=== PATIENT | male | born 1995 | race Caucasian/White ===

== ENCOUNTER → 2016-12-12 | Outpatient (REF) | payer MEDICAID ==
[~2016-12-12] MED LIST: CELE20TA PO; TRAZ100T4 PO
== END ==
LOC: M LAB REF 14:12
PROVIDERS: ATTEND Physician Assistant
DX: J02.9 Acute pharyngitis, unspecified (principal)

== ENCOUNTER → 2017-06-01 | Outpatient (CLI) | payer MEDICAID ==
[~2017-06-01] MED LIST changes: +OMEP40CA2 PO; +TRAZ-136 PO; -TRAZ100T4 PO
== END ==
LOC: M OUTALCOH 08:04
PROVIDERS: ATTEND Psychiatry & Neurology Psychiatry
DX: Z13.9 Encounter for screening, unspecified (principal); F12.20 Cannabis dependence, uncomplicated; F10.20 Alcohol dependence, uncomplicated

== ENCOUNTER 2017-07-11 13:36 | Emergency (ER) | payer MEDICAID, OTHER ==
[~2017-07-11] VITALS: Ht 182.9 cm; Wt 69.0 kg
[~2017-07-11 13:36] MED LIST changes: -OMEP40CA2 PO
[2017-07-11 15:49] LABS: BASO % 0.5 % (0.0-1.0); EOS % 0.5 % (0.0-3.0); IMMATURE GRANULOCYTE % 0.2 % (0-0); LYMPH # 1.5 10^3/uL (1.5-6.5); LYMPH % 22.4 % (24.0-44.0); MEAN CORPUSCULAR HEMOGLOBIN 31.4 pg (27.0-33.0); MEAN CORPUSCULAR HGB CONC 34.8 g/dl (32.0-36.5); MEAN CORPUSCULAR VOLUME 90.4 fl (80.0-96.0); MONO # 0.4 10^3/uL (0.0-0.8); MONO % 5.7 % (0.0-5.0); NEUTROPHILS # 4.6 10^3/uL (1.8-7.7); NEUTROPHILS % 70.7 % (36.0-66.0); PLATELET COUNT, AUTOMATED 279 10^3/uL (150-450); RED CELL DISTRIBUTION WIDTH 11.6 % (11.5-14.5); WHITE BLOOD COUNT 6.5 10^3/uL (4.0-10.0)
[2017-07-11 15:50] LABS: ADD MANUAL DIFFER NO; ADD MORPHOLOGY? NO; DIFF SLIDE NUMBER 149
[2017-07-11 16:15] LABS: ALBUMIN 4.7 GM/DL (3.2-5.2); ALBUMIN/GLOBULIN RATIO 1.42 (1.00-1.93); ALKALINE PHOSPHATASE 64 U/L (45-117); ALT/SGPT 16 U/L (12-78); ANION GAP 7 MEQ/L (8-16); AST/SGOT 12 U/L (15-37); BILIRUBIN,TOTAL 0.6 MG/DL (0.2-1.0); BLOOD UREA NITROGEN 7 MG/DL (7-18); CALCIUM LEVEL 9.1 MG/DL (8.5-10.1); CARBON DIOXIDE LEVEL 30 MEQ/L (21-32); CHLORIDE LEVEL 104 MEQ/L (98-107); CREATININE FOR GFR 1.05 MG/DL (0.70-1.30); GLOMERULAR FILTRATION RATE > 60.0 (>60); GLUCOSE, FASTING 77 MG/DL (70-105); SODIUM LEVEL 141 MEQ/L (136-145)
--- NOTE | 2017-07-11 17:40 | REPUSA ---
Clinical history: Right upper quadrant pain. Findings: The pancreas is limited in visualization secondary to overlying bowel gas, but appears celestina sly unremarkable. The liver demonstrates uniform echotexture and echogenicity, with no mass lesions. The gallbladder contains a small amount of echogenic, non-shadowing debris. There is no gallbladder w all thickening. The common bile duct measures 3 mm and is within normal limits. There is no ascites. The right kidney measures 11.4 cm in length and is unremarkable. Impression: Small amount of gallbladder sludge. Otherwise unremarkable ultrasound examination of the right upper quadrant.
[2017-07-11] MEDS ORDERED: OMEP40CA2 PO (17:52)
[2017-07-11 18:05] VITALS: BP 120/70
== END 2017-07-11 18:06 | disposition home or self-care (01) ==
LOC: M ED 13:36
DX: R10.11 Right upper quadrant pain (principal); F41.9 Anxiety disorder, unspecified; F33.9 Major depressive disorder, recurrent, unspecified; Z87.891 Personal history of nicotine dependence

== ENCOUNTER → 2017-12-14 | Outpatient (REF) | payer OTHER ==
[2017-12-14 14:11] LABS: VALPROIC ACID (DEPAKOTE) 57.5 UG/ML (50.0-100.0)
== END ==
LOC: M LAB REF 13:32
DX: Z51.81 Encounter for therapeutic drug level monitoring (principal)

== ENCOUNTER 2021-04-30 12:18 | Inpatient (IN) | payer MEDICAID, OTHER, SELFPAY ==
[~2021-04-30] VITALS: Ht 185.4 cm; Wt 68.0 kg
[~2021-04-30 12:18] MED LIST changes: +OMEP40CA4 PO; -TRAZ-136 PO; +TRAZ-257 PO
[2021-04-30 12:47] LABS: HEMATOCRIT 46.5 % (42.0-52.0); HEMOGLOBIN 15.8 g/dl (13.5-17.5); MEAN CORPUSCULAR HEMOGLOBIN 31.9 pg (27.0-33.0); MEAN CORPUSCULAR VOLUME 93.9 fl (80.0-96.0); PLATELET COUNT, AUTOMATED 257 10^3/uL (150-450); RED BLOOD COUNT 4.95 10^6/uL (4.30-6.10); WHITE BLOOD COUNT 7.3 10^3/uL (4.0-10.0)
[2021-04-30 13:10] LABS: AMPHETAMINES LEVEL URINE NEGATIVE (NEGATIVE); BARBITURATES URINE NEGATIVE (NEGATIVE); BENZODIAZEPINES URINE NEGATIVE (NEGATIVE); CANNABINOIDS URINE POSITIVE (NEGATIVE); COCAINE METABOLITE URINE NEGATIVE (NEGATIVE); METHADONE URINE NEGATIVE (NEGATIVE); OPIATES URINE NEGATIVE (NEGATIVE); PHENCYCLIDINE URINE NEGATIVE (NEGATIVE)
[2021-04-30 14:13] LABS: ACETAMINOPHEN LEVEL < 2.0 UG/ML (10.0-30.0); ALBUMIN 4.7 GM/DL (3.2-5.2); ALT/SGPT 26 U/L (12-78); BILIRUBIN,DIRECT 0.1 MG/DL (0.0-0.2); BILIRUBIN,TOTAL 0.6 MG/DL (0.2-1.0); BLOOD UREA NITROGEN 11 MG/DL (7-18); CALCIUM LEVEL 9.4 MG/DL (8.5-10.1); CARBON DIOXIDE LEVEL 24 MEQ/L (21-32); CHLORIDE LEVEL 108 MEQ/L (98-107); CREATININE FOR GFR 0.91 MG/DL (0.70-1.30); ETHYL ALCOHOL (ETHANOL) < 0.003 % (0.000-0.010); GLOMERULAR FILTRATION RATE > 60.0 (>60); GLUCOSE, FASTING 87 MG/DL (70-100); POTASSIUM SERUM 4.2 MEQ/L (3.5-5.1); SALICYLATE LEVEL 3.4 MG/DL (5.0-30.0); SODIUM LEVEL 140 MEQ/L (136-145); TOTAL PROTEIN 7.8 GM/DL (6.4-8.2)
[2021-04-30] MEDS ORDERED: HOME MED LIST COMPLETE! XX SCH (15:45)
[2021-04-30] MEDS ORDERED: MOM 30ML SUSPENSION UDC PO PRN (16:25)
[2021-04-30] MEDS ORDERED: MAALOX 30 ML SUSP *UDC PO PRN (16:25)
[2021-04-30] MEDS ORDERED: traZODone 50 MG TAB PO PRN (16:25)
[2021-04-30] MEDS ORDERED: ACETAMINOPHEN TAB 650MG DOSE (2X325MG) PO PRN (16:25)
[2021-04-30 17:12] LABS: RSV AMPLIFICATION NEGATIVE (NEGATIVE)
[2021-04-30 18:21] VITALS: BP 119/64
[2021-05-01 06:24] VITALS: BP 118/70
--- NOTE | 2021-05-01 14:32 | HPEPDOC ---
General Date of Admission Apr 30, 2021 at 16:24 Date of Service: May 01, 2021 Chief Complaint The patient is a 25-year-old male admitted with a reason for visit of Depressive Do Nos. Source: Patient Exam Limitations: No limitations History of Present Illness Patient is 25 years old male who identifies himself as a female presented to hospital with suicidal ideation. Pt reports in the process of transitioning from a male to a female. States she has a long hx of suicide attempts in the past, but refuses to explain in detail and notes never informing anyone. Patient denies fever, chills, nausea, diarrhea or dysuria Home Medications No Active Prescriptions or Reported Meds Allergies Coded Allergies: No Known Allergies (Unverified , 11/05/15) Past Medical History Medical History Anxiety/depression Family History Mother has anxiety and depression Social History * Smoker: current smoker Alcohol: occationally Drugs: marijuana A-FIB/CHADSVASC A-FIB History Current/History of A-Fib/PAF?: No Current PO Anticoag Therapy: No Review of Systems Constitutional: Denies: Chills Eyes: Denies: Pain ENT: Denies: Head Aches Skin: Denies: Rash Pulmonary: Denies: Dyspnea, Cough Cardiovascular: Denies: Chest Pain Gastrointestinal: Denies: Nausea Genitourinary: Denies: Dysuria Hematologic: Denies: Bruising Endocrine: Denies: Polydipsia Musculoskeletal: Denies: Neck Pain Neurological: Denies: Weakness Psych: Reports: Depression; Denies: Mood Normal Physical Examination General Exam: Positive: Alert Eye Exam: Positive: PERRLA ENT Exam: Positive: Atraumatic Neck Exam: Positive: Supple; Negative: JVD Chest Exam: Positive: Clear to auscultation Heart Exam: Positive: Rate Normal Telemetry: Positive: No significant arrhythmia Abdomen Exam: Positive: Normal bowel sounds Extremity Exam: Negative: Clubbing Skin Exam: Positive: Nl turgor and temperature Neuro Exam: Positive: Normal Gait Psych Exam: Positive: Oriented x 3 Vital Signs Vital Signs Date Time Temp Pulse Resp B/P (MAP) Pulse Ox O2 Delivery O2 Flow Rate FiO2 05/01/21 09:02 Room Air 05/01/21 06:24 97.5 75 18 118/70 (86) 98 Laboratory Data Labs 24H Laboratory Tests 2 04/30/21 15:51: Coronavirus (COVID-19)(PCR) NEGATIVE, Influenza Type A (RT-PCR) NEGATIVE, Influenza Type B (RT-PCR) NEGATIVE, Respiratory Syncytial Virus (PCR) NEGATIVE Assessment/Plan Patient is 25 years old male who identifies himself as a female presented to hospital with suicidal ideation. Pt reports in the process of transitioning from a male to a female. States she has a long hx of suicide attempts in the past, but refuses to explain in detail and notes never informing anyone. Patient denies fever, chills, nausea, diarrhea or dysuria Problems (1) Depression with suicidal ideation Status: Acute Problem Text: Defer treatment to psych team Plan / VTE VTE Prophylaxis Ordered?: No VTE Exclusion Mechanical Proph: Low Risk for VTE ANGELA ZHANG DO May 01, 2021 14:31
[2021-05-01] MEDS ORDERED: traZODone 100 MG TAB PO PRN (15:50)
[2021-05-01] MEDS ORDERED: SERTRALINE HCL 25 MG TABLET PO ONE (15:50)
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
[2021-05-01] MEDS: NICOTINE 14 MG/24 HR TRANSDERMAL TD PRN (17:59)
[2021-05-01 18:03] VITALS: BP 140/67
[2021-05-02 06:08] VITALS: BP 119/70
[2021-05-02] MEDS: NICOTINE 14 MG/24 HR TRANSDERMAL TD PRN (08:30)
[2021-05-02] MEDS: hydrOXYzine 50 MG TAB PO PRN ×2 (08:30→20:47)
[2021-05-02] MEDS: SERTRALINE HCL 50 MG TAB PO SCH (08:30)
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
[2021-05-02 18:00] VITALS: BP 132/76
[2021-05-02] MEDS ORDERED: MIRTAZAPINE 7.5MG PER 1/2 TABLET PO SCH (21:00)
[2021-05-03 07:04] VITALS: BP 113/58
[2021-05-03] MEDS: SERTRALINE HCL 50 MG TAB PO SCH (08:16)
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
[2021-05-03] MEDS: diphenhydrAMINE 25MG CAP PO SCH (22:10)
[2021-05-04] MEDS: SERTRALINE HCL 50 MG TAB PO SCH (08:25)
[2021-05-04] MEDS: NICOTINE 14 MG/24 HR TRANSDERMAL TD PRN (08:27)
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
[2021-05-04] MEDS: MULTIVITAMINS/MINERALS THERAP 1 TAB PO SCH (16:52)
[2021-05-04 17:03] VITALS: BP 135/75
[2021-05-04] MEDS: hydrOXYzine 50 MG TAB PO PRN (18:54)
[2021-05-04] MEDS: diphenhydrAMINE 25MG CAP PO SCH (21:45)
[2021-05-05 06:00] VITALS: BP 97/54
[2021-05-05] MEDS: SERTRALINE HCL 50 MG TAB PO SCH (09:03)
[2021-05-05] MEDS: MULTIVITAMINS/MINERALS THERAP 1 TAB PO SCH (09:03)
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
[2021-05-05 17:46] VITALS: BP 129/76
[2021-05-05] MEDS: diphenhydrAMINE 25MG CAP PO SCH (21:33)
[2021-05-06 07:24] VITALS: BP 115/78
[2021-05-06] MEDS: MULTIVITAMINS/MINERALS THERAP 1 TAB PO SCH (09:21)
[2021-05-06] MEDS: SERTRALINE HCL 50 MG TAB PO SCH (09:22)
[2021-05-06] MEDS ORDERED: SERT50TA29 PO (09:24)
[2021-05-06] MEDS ORDERED: NICO14PA TD (09:24)
[2021-05-06] MEDS ORDERED: DIPH25CA32 PO (09:24)
[2021-05-06] MEDS ORDERED: VITMTA PO (09:24)
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
== END 2021-05-06 11:40 | disposition home or self-care (01) | DRG 751 ==
LOC: M ED 12:18 → M ED INP 16:24 → M PSY 19:00
PROVIDERS: ADMIT Psychiatry & Neurology Psychiatry; ATTEND Psychiatry & Neurology Psychiatry
DX: F33.1 Major depressive disorder, recurrent, moderate (principal); F34.9 Persistent mood [affective] disorder, unspecified; R45.851 Suicidal ideations; F90.9 Attention-deficit hyperactivity disorder, unspecified type; F41.9 Anxiety disorder, unspecified; F17.200 Nicotine dependence, unspecified, uncomplicated; F64.9 Gender identity disorder, unspecified; Z63.8 Other specified problems related to primary support group; Z20.822 Contact with and (suspected) exposure to COVID-19; Z91.5 Personal history of self-harm; Z62.810 Personal history of physical and sexual abuse in childhood

== ENCOUNTER 2021-09-30 15:59 | Inpatient (IN) | payer MEDICAID, OTHER ==
[~2021-09-30] VITALS: Ht 180.3 cm; Wt 56.8 kg
[~2021-09-30 15:59] MED LIST changes: +DIPH25CA32 PO; +NICO14PA TD; +SERT50TA29 PO; +VITMTA PO
[2021-09-30] MEDS ORDERED: PROG1CAP8 PO ×2 (16:35→17:25)
[2021-09-30] MEDS ORDERED: ESTR25VL IM ×2 (16:35→17:25)
[2021-09-30] MEDS ORDERED: SPIR50TA4 PO ×2 (16:35→17:25)
[2021-09-30 17:06] LABS: HEMATOCRIT 42.9 % (42.0-52.0); HEMOGLOBIN 14.7 g/dl (13.5-17.5); MEAN CORPUSCULAR HEMOGLOBIN 31.9 pg (27.0-33.0); MEAN CORPUSCULAR HGB CONC 34.3 g/dl (32.0-36.5); MEAN CORPUSCULAR VOLUME 93.1 fl (80.0-96.0); PLATELET COUNT, AUTOMATED 224 10^3/uL (150-450); RED BLOOD COUNT 4.61 10^6/uL (4.30-6.10); WHITE BLOOD COUNT 8.4 10^3/uL (4.0-10.0)
[2021-09-30 17:13] LABS: AMPHETAMINES LEVEL URINE NEGATIVE (NEGATIVE); BARBITURATES URINE NEGATIVE (NEGATIVE); BENZODIAZEPINES URINE NEGATIVE (NEGATIVE); CANNABINOIDS URINE POSITIVE (NEGATIVE); COCAINE METABOLITE URINE NEGATIVE (NEGATIVE); METHADONE URINE NEGATIVE (NEGATIVE); OPIATES URINE NEGATIVE (NEGATIVE); PHENCYCLIDINE URINE NEGATIVE (NEGATIVE)
[2021-09-30] MEDS ORDERED: HOME MED LIST COMPLETE! XX SCH (17:25)
[2021-09-30 17:52] LABS: ACETAMINOPHEN LEVEL < 2.0 UG/ML (10.0-30.0); ALBUMIN 4.3 GM/DL (3.2-5.2); ALT/SGPT 17 U/L (12-78); BILIRUBIN,DIRECT 0.2 MG/DL (0.0-0.2); BILIRUBIN,TOTAL 0.6 MG/DL (0.2-1.0); BLOOD UREA NITROGEN 10 MG/DL (7-18); CARBON DIOXIDE LEVEL 22 MEQ/L (21-32); CHLORIDE LEVEL 109 MEQ/L (98-107); CREATININE FOR GFR 0.84 MG/DL (0.70-1.30); ETHYL ALCOHOL (ETHANOL) < 0.003 % (0.000-0.010); GLOMERULAR FILTRATION RATE > 60.0 (>60); GLUCOSE, FASTING 86 MG/DL (70-100); POTASSIUM SERUM 4.5 MEQ/L (3.5-5.1); SALICYLATE LEVEL 4.1 MG/DL (5.0-30.0); SODIUM LEVEL 139 MEQ/L (136-145); THYROID STIMULATING HORMONE 0.647 uIU/ML (0.358-3.740); TOTAL PROTEIN 7.3 GM/DL (6.4-8.2)
[2021-09-30 18:07] LABS: RSV AMPLIFICATION NEGATIVE (NEGATIVE)
[2021-09-30] MEDS ORDERED: SPIRONOLACTONE 50 MG TAB PO ONE (20:40)
[2021-09-30] MEDS ORDERED: diphenhydrAMINE 25MG CAP PO ONE (21:30)
[2021-10-01] MEDS ORDERED: ACETAMINOPHEN TAB 650MG DOSE (2X325MG) PO PRN (14:20)
[2021-10-01] MEDS ORDERED: LORazepam 1 MG TAB PO PRN (14:20)
[2021-10-01] MEDS ORDERED: MOM 30ML SUSPENSION UDC PO PRN (14:20)
[2021-10-01] MEDS ORDERED: MAALOX 30 ML SUSP *UDC PO PRN (14:20)
[2021-10-01 16:18] VITALS: BP 108/56
[2021-10-01] MEDS: SPIRONOLACTONE 50 MG TAB PO SCH (22:17)
[2021-10-01] MEDS: traZODone 50 MG TAB PO PRN (22:30)
[2021-10-02 06:27] VITALS: BP 133/77
[2021-10-02] MEDS: SPIRONOLACTONE 50 MG TAB PO SCH ×2 (08:27→20:39)
[2021-10-02] MEDS ORDERED: PROGESTERONE 100MG CAPSULE (PATIENT'S OWN MED) PO SCH (09:00)
[2021-10-02] MEDS ORDERED: INFLUENZA QUADRIVALENT PF VACCINE 0.5ML SYRINGE IM ONE (09:00)
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
--- NOTE | 2021-10-02 13:33 | HPEPDOC ---
General Date of Admission Oct 01, 2021 at 14:18 Date of Service: Oct 02, 2021 Chief Complaint The patient is a 25-year-old male admitted with a reason for visit of Depressive Disorder Nos. History of Present Illness This is a 25 -year-old Single, , male to female transgender (in the process of undergoing the transition), goes by the name of Hope has been admitted to inpatient mental health unit for suicidal attempt by cutting her wrists with scissors after an argument with her mother. Denies any complaints this morning. Home Medications Scheduled Estradiol Cypionate (Depo-Estradiol) 5 Mg/1 Ml Vial, 0.3 MG IM Q2WK, (Reported) Progesterone, Micronized (Progesterone) 100 Mg Capsule, 100 MG PO DAILY, (Reported) Spironolactone (Spironolactone) 50 Mg Tablet, 50 MG PO BID, (Reported) Allergies Coded Allergies: No Known Allergies (Unverified , 11/05/15) Past Medical History Medical History Major Depressive Disorder ADHD Unspecified Anxiety Disorder Nicotine Use Disorder History of Cannabis Use Disorder Gender Dysphoria Distress Surgical History None Family History Significant Family History: Other (Mother has anxiety and depression.) Social History * Smoker: former Smoker Alcohol: occationally Drugs: marijuana A-FIB/CHADSVASC A-FIB History Current/History of A-Fib/PAF?: No Age/Risk Factor Scoring CHADSVASC: CHADSVASC Response (Comments) Value Age Risk Factor Age < 65 years old 0 Gender Risk Factor Male 0 Hx of CHF No 0 Hx of HTN No 0 Hx of Stroke/TIA/or VTE No 0 Hx of Diabetes No 0 Hx of Vascular Disease No 0 Total 0 Review of Systems Constitutional: Denies: Chills, Fever, Night Sweats Eyes: Denies: Pain, Vision change Skin: Denies: Rash, Lesions, Breakdown Pulmonary: Denies: Dyspnea, Cough Cardiovascular: Denies: Chest Pain, Palpitations, Orthopnea, Paroxysmal Noc. Dyspnea, Lt Headedness Gastrointestinal: Denies: Nausea, Vomiting, Abdominal Pain, Diarrhea Genitourinary: Denies: Dysuria, Frequency, Incontinence, Retention Hematologic: Denies: Bruising, Bleeding Excessively Physical Examination General Exam: Positive: Alert, Cooperative, No Acute Distress Eye Exam: Positive: PERRLA, Conjunctiva & lids normal, EOMI; Negative: Sclera icteric ENT Exam: Positive: Atraumatic, Mucous membr. moist/pink, Pharynx Normal, Other ENT (Bitemporal wasting) Neck Exam: Positive: Supple; Negative: JVD, thyromegaly Chest Exam: Positive: Clear to auscultation, Normal air movement Heart Exam: Positive: Rate Normal, Regular Rhythm, Normal S1, Normal S2; Negative: Murmurs, Rubs Abdomen Exam: Positive: Normal bowel sounds, Soft; Negative: Tenderness, Hepatospenomegaly Extremity Exam: Negative: Clubbing, Cyanosis, Edema Skin Exam: Positive: Nl turgor and temperature; Negative: Breakdown, Lesion Psych Exam: Positive: Memory Intact, Oriented x 3 Vital Signs Vital Signs Date Time Temp Pulse Resp B/P (MAP) Pulse Ox O2 Delivery O2 Flow Rate FiO2 10/02/21 06:27 97.6 92 16 133/77 (95) 97 Room Air Assessment/Plan This is a 25 -year-old Single, , male to female transgender (in the process of undergoing the transition), goes by the name of Hope has been admitted to inpatient mental health unit for suicidal attempt by cutting her wrists with scissors after an argument with her mother. No medical complaints at this time. On questioning patient reports that he lost 30 pounds in the past 3 months. She reports that after starting hormone therapy she has been over conscious about her weight and whenever feel she feels like she is gaining weight she stops eating. Depression As per psychiatry Protein calorie malnutrition BMI of 17.5 Loss of 30 pounds in 3-months Has bitemporal wasting. Sruthi Catherine MD Oct 02, 2021 11:26
[2021-10-02 17:51] VITALS: BP 122/78
[2021-10-02] MEDS: traZODone 50 MG TAB PO PRN (22:26)
[2021-10-03 06:19] VITALS: BP 108/66
[2021-10-03] MEDS ORDERED: TRAZ-257 PO (07:40)
[2021-10-03] MEDS: SPIRONOLACTONE 50 MG TAB PO SCH (08:43)
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
== END 2021-10-03 09:30 | disposition home or self-care (01) | DRG 755 ==
LOC: M ED 15:59 → M ED INP 10-01 14:18 → M PSY 10-01 16:11
PROVIDERS: ADMIT Psychiatry & Neurology Psychiatry; ATTEND Psychiatry & Neurology Psychiatry
DX: F43.25 Adjustment disorder with mixed disturbance of emotions and conduct (principal); E46 Unspecified protein-calorie malnutrition; F64.0 Transsexualism; Z87.891 Personal history of nicotine dependence; Z79.899 Other long term (current) drug therapy; Z62.810 Personal history of physical and sexual abuse in childhood; Z91.51 Personal history of suicidal behavior; Z68.1 Body mass index [BMI] 19.9 or less, adult; F34.81 Disruptive mood dysregulation disorder

== ENCOUNTER 2021-11-27 03:27 | Emergency (ER) | payer MEDICAID, OTHER ==
[~2021-11-27] VITALS: Ht 180.3 cm; Wt 61.4 kg
[~2021-11-27 03:27] MED LIST changes: +ESTR25VL IM; +PROG1CAP8 PO; +SPIR50TA4 PO
[2021-11-27] MEDS ORDERED: ACETAMINOPHEN 325 MG TAB PO ONE (07:10)
[2021-11-27 08:29] LABS: BASO # 0.1 10^3/uL (0.0-0.2); BASO % 0.5 % (0.0-1.0); EOS # 0.1 10^3/uL (0.0-0.5); EOS % 0.5 % (0.0-3.0); HEMATOCRIT 41.9 % (42.0-52.0); HEMOGLOBIN 14.4 g/dl (13.5-17.5); LYMPH # 1.3 10^3/uL (1.5-5.0); LYMPH % 8.6 % (24.0-44.0); MEAN CORPUSCULAR HEMOGLOBIN 31.9 pg (27.0-33.0); MEAN CORPUSCULAR HGB CONC 34.4 g/dl (32.0-36.5); MEAN CORPUSCULAR VOLUME 92.7 fl (80.0-96.0); MONO # 0.8 10^3/uL (0.0-0.8); MONO % 5.2 % (2.0-8.0); NEUTROPHILS # 13.2 10^3/uL (1.5-8.5); NEUTROPHILS % 84.7 % (36.0-66.0); PLATELET COUNT, AUTOMATED 295 10^3/uL (150-450); RED BLOOD COUNT 4.52 10^6/uL (4.30-6.10); WHITE BLOOD COUNT 15.6 10^3/uL (4.0-10.0)
[2021-11-27] MEDS ORDERED: ISOVUE-370 76% 100ML VIAL As Ordered ONE (08:43)
[2021-11-27 08:56] LABS: ALBUMIN 4.2 GM/DL (3.2-5.2); ALT/SGPT 24 U/L (12-78); BILIRUBIN,DIRECT 0.2 MG/DL (0.0-0.2); BILIRUBIN,TOTAL 0.7 MG/DL (0.2-1.0); BLOOD UREA NITROGEN 13 MG/DL (7-18); CALCIUM LEVEL 9.3 MG/DL (8.5-10.1); CARBON DIOXIDE LEVEL 28 MEQ/L (21-32); CHLORIDE LEVEL 105 MEQ/L (98-107); CREATININE FOR GFR 0.94 MG/DL (0.70-1.30); GLOMERULAR FILTRATION RATE > 60.0 (>60); GLUCOSE, FASTING 95 MG/DL (70-100); LIPASE 92 U/L (73-393); POTASSIUM SERUM 4.7 MEQ/L (3.5-5.1); SODIUM LEVEL 138 MEQ/L (136-145); TOTAL PROTEIN 7.5 GM/DL (6.4-8.2)
[2021-11-27] MEDS ORDERED: PIPERACILLIN/TAZOBACTAM SOD 3.375 GM in D5W MINI-BAG PLUS 50 ML IV ONE (10:15)
[2021-11-27] MEDS ORDERED: KETOROLAC 30 MG/ML 1ML VIAL IV ONE (10:25)
[2021-11-27 12:13] LABS: RSV AMPLIFICATION NEGATIVE (NEGATIVE)
[2021-11-27 12:29] VITALS: BP 115/60
== END 2021-11-27 13:01 | disposition home or self-care (01) ==
LOC: M ED 03:27
DX: R10.31 Right lower quadrant pain (principal); R10.32 Left lower quadrant pain; D72.829 Elevated white blood cell count, unspecified; Z87.891 Personal history of nicotine dependence; Z79.890 Hormone replacement therapy; Z79.899 Other long term (current) drug therapy
CPT/HCPCS: 74177; 80048; 80076; 83690; 85025; 87631; 96374; 96375; 99284; J1885; J2543; Q9967

== ENCOUNTER 2022-01-22 15:11 | Inpatient (IN) | payer MEDICAID, OTHER ==
[~2022-01-22] VITALS: Ht 177.8 cm; Wt 57.5 kg
[2022-01-22] MEDS ORDERED: SPIR100T3 (15:23)
[2022-01-22 18:32] LABS: BASO # 0.1 10^3/uL (0.0-0.2); BASO % 0.3 % (0.0-1.0); EOS % 0.2 % (0.0-3.0); HEMATOCRIT 38.9 % (42.0-52.0); HEMOGLOBIN 13.6 g/dl (13.5-17.5); LYMPH # 1.6 10^3/uL (1.5-5.0); LYMPH % 10.8 % (24.0-44.0); MEAN CORPUSCULAR HEMOGLOBIN 32.5 pg (27.0-33.0); MEAN CORPUSCULAR VOLUME 93.1 fl (80.0-96.0); MONO # 1.2 10^3/uL (0.0-0.8); MONO % 7.7 % (2.0-8.0); NEUTROPHILS # 12.1 10^3/uL (1.5-8.5); NEUTROPHILS % 80.5 % (36.0-66.0); PLATELET COUNT, AUTOMATED 292 10^3/uL (150-450); RED BLOOD COUNT 4.18 10^6/uL (4.30-6.10)
[2022-01-22 18:43] LABS: INR 1.14
[2022-01-22 18:44] LABS: PARTIAL THROMBOPLASTIN TIME 37.7 SECONDS (25.9-37.0)
[2022-01-22] MEDS ORDERED: NS 1,000 ML IV ONE (18:45)
[2022-01-22] MEDS ORDERED: KETOROLAC 30 MG/ML 1ML VIAL IV ONE (18:45)
[2022-01-22 18:55] LABS: CK-MB VALUE MASS < 1.0 NG/ML (<3.6); CPK CREATINE PHOSPHOKINASE 120 U/L (39-308); MB/CK RELATIVE INDEX 0.83 (< OR =4)
[2022-01-22 18:59] LABS: ALBUMIN 3.8 GM/DL (3.2-5.2); ALT/SGPT 29 U/L (12-78); AMYLASE 34 U/L (25-115); BILIRUBIN,DIRECT 0.2 MG/DL (0.0-0.2); BILIRUBIN,TOTAL 0.7 MG/DL (0.2-1.0); ETHYL ALCOHOL (ETHANOL) < 0.003 % (0.000-0.010); LIPASE 70 U/L (73-393)
[2022-01-22] MEDS ORDERED: ISOVUE-370 76% 100ML VIAL As Ordered ONE (19:01)
[2022-01-22 19:10] LABS: AMPHETAMINES LEVEL URINE NEGATIVE (NEGATIVE); BARBITURATES URINE NEGATIVE (NEGATIVE); BENZODIAZEPINES URINE NEGATIVE (NEGATIVE); CANNABINOIDS URINE POSITIVE (NEGATIVE); COCAINE METABOLITE URINE NEGATIVE (NEGATIVE); METHADONE URINE NEGATIVE (NEGATIVE); OPIATES URINE NEGATIVE (NEGATIVE); PHENCYCLIDINE URINE NEGATIVE (NEGATIVE)
[2022-01-22 19:14] LABS: BLOOD UREA NITROGEN 9 MG/DL (7-18); CALCIUM LEVEL 8.6 MG/DL (8.5-10.1); CARBON DIOXIDE LEVEL 25 MEQ/L (21-32); CHLORIDE LEVEL 104 MEQ/L (98-107); CREATININE FOR GFR 0.81 MG/DL (0.70-1.30); GLOMERULAR FILTRATION RATE > 60.0 (>60); GLUCOSE, FASTING 84 MG/DL (70-100); POTASSIUM SERUM 3.6 MEQ/L (3.5-5.1); SODIUM LEVEL 136 MEQ/L (136-145)
[2022-01-22] MEDS ORDERED: SPIR100T3 PO (22:26)
[2022-01-22] MEDS ORDERED: HOME MED LIST COMPLETE! XX SCH (22:30)
[2022-01-22 22:45] LABS: ACETAMINOPHEN LEVEL < 2.0 UG/ML (10.0-30.0); SALICYLATE LEVEL 2.6 MG/DL (5.0-30.0); THYROID STIMULATING HORMONE 0.717 uIU/ML (0.358-3.740)
[2022-01-22 23:40] LABS: RSV AMPLIFICATION NEGATIVE (NEGATIVE)
[2022-01-23 08:14] LABS: HEMATOCRIT 38.3 % (42.0-52.0); HEMOGLOBIN 13.2 g/dl (13.5-17.5); MEAN CORPUSCULAR HEMOGLOBIN 32.4 pg (27.0-33.0); MEAN CORPUSCULAR HGB CONC 34.5 g/dl (32.0-36.5); MEAN CORPUSCULAR VOLUME 93.9 fl (80.0-96.0); PLATELET COUNT, AUTOMATED 278 10^3/uL (150-450); RED BLOOD COUNT 4.08 10^6/uL (4.30-6.10); WHITE BLOOD COUNT 8.6 10^3/uL (4.0-10.0)
[2022-01-23 08:31] LABS: BLOOD UREA NITROGEN 8 MG/DL (7-18); CALCIUM LEVEL 8.4 MG/DL (8.5-10.1); CARBON DIOXIDE LEVEL 25 MEQ/L (21-32); CHLORIDE LEVEL 108 MEQ/L (98-107); CREATININE FOR GFR 0.63 MG/DL (0.70-1.30); GLOMERULAR FILTRATION RATE > 60.0 (>60); GLUCOSE, FASTING 89 MG/DL (70-100); POTASSIUM SERUM 4.1 MEQ/L (3.5-5.1); SODIUM LEVEL 140 MEQ/L (136-145)
[2022-01-23] MEDS: SPIRONOLACTONE 50 MG TAB PO SCH ×2 (09:45→22:58)
[2022-01-23] MEDS: PROGESTERONE 100MG CAPSULE (PATIENT'S OWN MED) PO SCH (14:20)
[2022-01-24] MEDS: SPIRONOLACTONE 50 MG TAB PO SCH ×2 (09:51→22:55)
[2022-01-24] MEDS: PROGESTERONE 100MG CAPSULE (PATIENT'S OWN MED) PO SCH (10:35)
[2022-01-24] MEDS ORDERED: LORazepam 1 MG TAB PO ONE (11:30)
[2022-01-24] MEDS ORDERED: BENZONATATE 100MG CAPSULE PO ONE (21:20)
[2022-01-25] MEDS: SPIRONOLACTONE 50 MG TAB PO SCH ×2 (10:16→21:33)
[2022-01-25] MEDS: PROGESTERONE 100MG CAPSULE (PATIENT'S OWN MED) PO SCH (10:16)
[2022-01-25] MEDS ORDERED: LORazepam 1 MG TAB PO ONE ×2 (11:30→18:05)
[2022-01-26] MEDS ORDERED: ESTRADIOL CYPIONATE 5 MG/ML IM SCH (09:00)
[2022-01-26] MEDS: PROGESTERONE 100MG CAPSULE (PATIENT'S OWN MED) PO SCH (09:03)
[2022-01-26] MEDS: SPIRONOLACTONE 50 MG TAB PO SCH ×2 (09:29→21:52)
[2022-01-26] MEDS ORDERED: LORazepam 1 MG TAB PO STA (11:40)
[2022-01-26] MEDS ORDERED: MAALOX 30 ML SUSP *UDC PO PRN (14:00)
[2022-01-26] MEDS ORDERED: MOM 30ML SUSPENSION UDC PO PRN (14:00)
[2022-01-26] MEDS ORDERED: ACETAMINOPHEN TAB 650MG DOSE (2X325MG) PO PRN (14:00)
[2022-01-26] MEDS: NICOTINE 21MG/24HR 1 EA TRANSDERMAL TD SCH (14:38)
[2022-01-26 18:53] VITALS: BP 130/71
[2022-01-26] MEDS: diphenhydrAMINE 25MG CAP PO PRN (20:38)
[2022-01-26] MEDS ORDERED: ENTER DRUG NAME HERE (PATIENT'S OWN MED) PO ONE (21:10)
[2022-01-26] MEDS ORDERED: PROGESTERONE 100 MG PO ONE (21:30)
[2022-01-27] MEDS: NICOTINE 21MG/24HR 1 EA TRANSDERMAL TD SCH (09:00)
[2022-01-27] MEDS ORDERED: LORazepam 1 MG TAB PO ONE (09:45)
[2022-01-27] MEDS: PROGESTERONE 100 MG PO SCH (10:03)
[2022-01-27] MEDS: SPIRONOLACTONE 50 MG TAB PO SCH ×2 (11:43→17:00)
[2022-01-27 18:00] VITALS: BP 112/60
[2022-01-28] MEDS: NICOTINE 21MG/24HR 1 EA TRANSDERMAL TD SCH (09:00)
[2022-01-28] MEDS: PROGESTERONE 100 MG PO SCH (09:10)
[2022-01-28] MEDS: diphenhydrAMINE 25MG CAP PO PRN (09:10)
[2022-01-28] MEDS: SPIRONOLACTONE 50 MG TAB PO SCH ×2 (09:10→16:53)
[2022-01-28 16:17] VITALS: BP 133/70
[2022-01-28] MEDS: lamoTRIgine 25MG TAB PO SCH (21:49)
[2022-01-29 06:39] VITALS: BP 121/59
[2022-01-29] MEDS: PROGESTERONE 100 MG PO SCH (08:50)
[2022-01-29] MEDS: SPIRONOLACTONE 50 MG TAB PO SCH ×2 (08:50→16:56)
[2022-01-29] MEDS: NICOTINE 21MG/24HR 1 EA TRANSDERMAL TD SCH (08:51)
[2022-01-29 18:21] VITALS: BP 117/63
[2022-01-29] MEDS: lamoTRIgine 25MG TAB PO SCH (22:25)
[2022-01-30 06:55] VITALS: BP 134/68
[2022-01-30] MEDS: PROGESTERONE 100 MG PO SCH (08:42)
[2022-01-30] MEDS: SPIRONOLACTONE 50 MG TAB PO SCH ×2 (08:42→16:52)
[2022-01-30] MEDS: NICOTINE 21MG/24HR 1 EA TRANSDERMAL TD SCH (08:45)
[2022-01-30] MEDS ORDERED: diphenhydrAMINE CREAM 30GM TOP PRN (13:20)
[2022-01-30 16:08] VITALS: BP 134/68
[2022-01-30] MEDS: lamoTRIgine 25MG TAB PO SCH (20:55)
[2022-01-30] MEDS: diphenhydrAMINE 25MG CAP PO PRN (22:18)
[2022-01-31 06:10] VITALS: BP 114/71
[2022-01-31] MEDS: NICOTINE 21MG/24HR 1 EA TRANSDERMAL TD SCH (09:00)
[2022-01-31] MEDS: SPIRONOLACTONE 50 MG TAB PO SCH ×2 (09:44→16:26)
[2022-01-31] MEDS: PROGESTERONE 100 MG PO SCH (09:44)
[2022-01-31 09:47] VITALS: BP 114/71
[2022-01-31] MEDS: busPIRone 5 MG TAB PO PRN (16:26)
[2022-01-31] MEDS: diphenhydrAMINE 25MG CAP PO PRN (16:26)
[2022-01-31 16:55] VITALS: BP 127/69
[2022-01-31] MEDS: lamoTRIgine 25MG TAB PO SCH (21:54)
[2022-02-01] MEDS: PROGESTERONE 100 MG PO SCH (07:42)
[2022-02-01] MEDS: SPIRONOLACTONE 50 MG TAB PO SCH ×2 (07:43→17:09)
[2022-02-01] MEDS: NICOTINE 21MG/24HR 1 EA TRANSDERMAL TD SCH (07:44)
[2022-02-01] MEDS: busPIRone 5 MG TAB PO PRN ×2 (11:40→23:30)
[2022-02-01] MEDS: diphenhydrAMINE 25MG CAP PO PRN ×2 (11:40→23:30)
[2022-02-01 16:29] VITALS: BP 112/62
[2022-02-01] MEDS: lamoTRIgine 25MG TAB PO SCH (22:07)
[2022-02-02] MEDS: NICOTINE 21MG/24HR 1 EA TRANSDERMAL TD SCH (08:27)
[2022-02-02] MEDS ORDERED: ESTRADIOL CYPIONATE IM SCH (09:00)
[2022-02-02] MEDS: SPIRONOLACTONE 50 MG TAB PO SCH ×2 (09:47→17:47)
[2022-02-02] MEDS: diphenhydrAMINE 25MG CAP PO PRN (09:47)
[2022-02-02] MEDS: busPIRone 10 MG TAB PO SCH ×2 (09:47→20:20)
[2022-02-02] MEDS: PROGESTERONE 100 MG PO SCH (09:47)
[2022-02-02] MEDS ORDERED: hydrOXYzine 50 MG TAB PO PRN (15:00)
[2022-02-02] MEDS ORDERED: LORazepam 2 MG TAB PO ONE (15:15)
[2022-02-02] MEDS: lamoTRIgine 25MG TAB PO SCH (20:20)
[2022-02-03 06:30] VITALS: BP 135/60
[2022-02-03] MEDS: PROGESTERONE 100 MG PO SCH (08:28)
[2022-02-03] MEDS: NICOTINE 21MG/24HR 1 EA TRANSDERMAL TD SCH (08:29)
[2022-02-03] MEDS: busPIRone 10 MG TAB PO SCH ×2 (08:29→20:51)
[2022-02-03] MEDS: SPIRONOLACTONE 50 MG TAB PO SCH ×2 (08:29→16:51)
[2022-02-03 17:46] VITALS: BP 123/75
[2022-02-03] MEDS: lamoTRIgine 25MG TAB PO SCH (20:51)
[2022-02-03] MEDS ORDERED: QUEtiapine FUMARATE 50MG TAB PO SCH (21:00)
[2022-02-04 06:48] VITALS: BP 104/60
[2022-02-04] MEDS: SPIRONOLACTONE 50 MG TAB PO SCH (08:28)
[2022-02-04] MEDS: busPIRone 10 MG TAB PO SCH (08:28)
[2022-02-04] MEDS: PROGESTERONE 100 MG PO SCH (08:28)
[2022-02-04] MEDS: NICOTINE 21MG/24HR 1 EA TRANSDERMAL TD SCH (08:30)
[2022-02-04] MEDS ORDERED: QUEtiapine FUMARATE 50MG TAB PO ONE (09:45)
[2022-02-04] MEDS ORDERED: LAMI25TA PO (11:09)
[2022-02-04] MEDS ORDERED: QUET50TA4 PO (11:09)
[2022-02-04] MEDS ORDERED: BUSP10TA PO (11:09)
== END 2022-02-04 12:45 | disposition home or self-care (01) | DRG 753 ==
LOC: M ED 15:11 → M ED INP 01-26 13:56 → UNDOADMIN 01-26 13:56 → M ED INP 01-26 14:37 → M PSY 01-26 17:59
PROVIDERS: ADMIT Psychiatry & Neurology Psychiatry; ATTEND Psychiatry & Neurology Psychiatry
DX: F31.9 Bipolar disorder, unspecified (principal); R45.851 Suicidal ideations; F90.2 Attention-deficit hyperactivity disorder, combined type; F41.9 Anxiety disorder, unspecified; F12.11 Cannabis abuse, in remission; F64.0 Transsexualism; F17.210 Nicotine dependence, cigarettes, uncomplicated; Z56.0 Unemployment, unspecified; Z63.8 Other specified problems related to primary support group; Z91.51 Personal history of suicidal behavior; Z62.810 Personal history of physical and sexual abuse in childhood; Z20.822 Contact with and (suspected) exposure to COVID-19; Z79.899 Other long term (current) drug therapy; Z79.890 Hormone replacement therapy; S20.20XA Contusion of thorax, unspecified, initial encounter; X58.XXXA Exposure to other specified factors, initial encounter; Y92.9 Unspecified place or not applicable

== ENCOUNTER 2022-03-21 23:42 | Emergency (ER) | payer OTHER ==
[~2022-03-21] VITALS: Ht 180.3 cm; Wt 61.3 kg
[~2022-03-21 23:42] MED LIST changes: +BUSP10TA PO; +LAMI25TA PO; +QUET50TA4 PO; +SPIR100T3; +SPIR100T3 PO
[2022-03-22 00:35] LABS: BASO # 0.1 10^3/uL (0.0-0.2); BASO % 0.6 % (0.0-1.0); EOS # 0.2 10^3/uL (0.0-0.5); EOS % 1.2 % (0.0-3.0); HEMATOCRIT 41.4 % (42.0-52.0); HEMOGLOBIN 14.2 g/dl (13.5-17.5); LYMPH # 1.7 10^3/uL (1.5-5.0); LYMPH % 12.3 % (24.0-44.0); MEAN CORPUSCULAR HEMOGLOBIN 32.8 pg (27.0-33.0); MEAN CORPUSCULAR HGB CONC 34.3 g/dl (32.0-36.5); MEAN CORPUSCULAR VOLUME 95.6 fl (80.0-96.0); MONO # 0.8 10^3/uL (0.0-0.8); MONO % 5.6 % (2.0-8.0); NEUTROPHILS # 11.1 10^3/uL (1.5-8.5); NEUTROPHILS % 80.1 % (36.0-66.0); PLATELET COUNT, AUTOMATED 266 10^3/uL (150-450); RED BLOOD COUNT 4.33 10^6/uL (4.30-6.10); WHITE BLOOD COUNT 13.8 10^3/uL (4.0-10.0)
[2022-03-22 00:48] LABS: CK-MB VALUE MASS < 1.0 NG/ML (<3.6); CPK CREATINE PHOSPHOKINASE 44 U/L (39-308); MB/CK RELATIVE INDEX 2.27 (< OR =4)
[2022-03-22 00:54] LABS: BLOOD UREA NITROGEN 9 MG/DL (7-18); CARBON DIOXIDE LEVEL 27 MEQ/L (21-32); CHLORIDE LEVEL 109 MEQ/L (98-107); CREATININE FOR GFR 0.99 MG/DL (0.70-1.30); GLOMERULAR FILTRATION RATE > 60.0 (>60); GLUCOSE, FASTING 97 MG/DL (70-100); POTASSIUM SERUM 3.8 MEQ/L (3.5-5.1); SODIUM LEVEL 142 MEQ/L (136-145)
[2022-03-22 00:55] LABS: CALCIUM LEVEL 8.2 MG/DL (8.5-10.1); FREE T4 1.18 NG/DL (0.76-1.46); MAGNESIUM LEVEL 2.1 MG/DL (1.8-2.4)
[2022-03-22] MEDS ORDERED: NS 1,000 ML IV ONE ×3 (01:45→04:05)
[2022-03-22 04:03] LABS: AMPHETAMINES LEVEL URINE NEGATIVE (NEGATIVE); BARBITURATES URINE NEGATIVE (NEGATIVE); BENZODIAZEPINES URINE NEGATIVE (NEGATIVE); CANNABINOIDS URINE POSITIVE (NEGATIVE); COCAINE METABOLITE URINE NEGATIVE (NEGATIVE); METHADONE URINE NEGATIVE (NEGATIVE); OPIATES URINE NEGATIVE (NEGATIVE); PHENCYCLIDINE URINE NEGATIVE (NEGATIVE)
[2022-03-22 06:00] VITALS: BP 107/59
== END 2022-03-22 06:55 | disposition home or self-care (01) ==
LOC: M ED 23:42
DX: S00.03XA Contusion of scalp, initial encounter (principal); W01.198A Fall on same level from slipping, tripping and stumbling with subsequent striking against other object, initial encounter; R55 Syncope and collapse; F19.10 Other psychoactive substance abuse, uncomplicated; F10.120 Alcohol abuse with intoxication, uncomplicated; F64.0 Transsexualism; F31.9 Bipolar disorder, unspecified; Z79.899 Other long term (current) drug therapy

== ENCOUNTER → 2022-08-12 | Outpatient (CLI) | payer OTHER | LOC: M WHC 07:41 | PROVIDERS: ATTEND Physician Assistant Medical | DX: N64.52 Nipple discharge (principal) ==

== ENCOUNTER 2022-12-29 01:21 | Inpatient (IN) | payer MEDICAID, OTHER ==
[~2022-12-29] VITALS: Ht 180.3 cm; Wt 61.0 kg
[~2022-12-29 01:21] MED LIST changes: +DIPH-435 PO; -DIPH25CA32 PO
[2022-12-29 03:06] LABS: HEMATOCRIT 37.8 % (42.0-52.0); HEMOGLOBIN 12.5 g/dl (13.5-17.5); MEAN CORPUSCULAR HEMOGLOBIN 31.9 pg (27.0-33.0); MEAN CORPUSCULAR HGB CONC 33.1 g/dl (32.0-36.5); MEAN CORPUSCULAR VOLUME 96.4 fl (80.0-96.0); PLATELET COUNT, AUTOMATED 259 10^3/uL (150-450); RED BLOOD COUNT 3.92 10^6/uL (4.30-6.10); WHITE BLOOD COUNT 10.7 10^3/uL (4.0-10.0)
[2022-12-29 03:14] LABS: AMPHETAMINES LEVEL URINE NEGATIVE (NEGATIVE); BARBITURATES URINE NEGATIVE (NEGATIVE); BENZODIAZEPINES URINE NEGATIVE (NEGATIVE); COCAINE METABOLITE URINE NEGATIVE (NEGATIVE); METHADONE URINE NEGATIVE (NEGATIVE); OPIATES URINE NEGATIVE (NEGATIVE); PHENCYCLIDINE URINE NEGATIVE (NEGATIVE)
[2022-12-29 03:17] LABS: CANNABINOIDS URINE POSITIVE (NEGATIVE)
[2022-12-29 03:22] LABS: ETHYL ALCOHOL (ETHANOL) < 0.003 % (0.000-0.010)
[2022-12-29 03:24] LABS: ACETAMINOPHEN LEVEL < 2.0 UG/ML (10.0-20.0); SALICYLATE LEVEL < 3.0 MG/DL (<30)
[2022-12-29 03:38] LABS: ALBUMIN 3.5 G/DL (3.2-5.2); ALKALINE PHOSPHATASE 68 U/L (46-116); ALT/SGPT 51 U/L (7.0-40); AST/SGOT 40 U/L (<34); BILIRUBIN,DIRECT < 0.1 MG/DL (<0.4); BILIRUBIN,TOTAL 0.2 MG/DL (0.3-1.2); BLOOD UREA NITROGEN 11 MG/DL (9-23); CALCIUM LEVEL 8.6 MG/DL (8.5-10.1); CARBON DIOXIDE LEVEL 27 MMOL/L (20-31); CHLORIDE LEVEL 106 MMOL/L (98-107); GLOMERULAR FILTRATION RATE > 60.0 (>60); GLUCOSE, FASTING 91 MG/DL (60-100); POTASSIUM SERUM 4.2 MMOL/L (3.5-5.1); SODIUM LEVEL 138 MMOL/L (136-145); THYROID STIMULATING HORMONE 2.085 uIU/ML (0.55-4.78)
[2022-12-29 05:09] LABS: TOTAL PROTEIN 5.9 G/DL (5.7-8.2)
[2022-12-29] MEDS ORDERED: QUET100T2 PO (06:27)
[2022-12-29] MEDS ORDERED: ESTR2TAB3 PO (06:27)
[2022-12-29] MEDS ORDERED: HOME MED LIST COMPLETE! XX SCH (06:30)
[2022-12-29] MEDS: SPIRONOLACTONE 50 MG TAB PO SCH ×3 (08:57→17:44)
[2022-12-29] MEDS ORDERED: ENTER DRUG NAME HERE (PATIENT'S OWN MED) PO SCH ×2 (09:00)
[2022-12-29] MEDS ORDERED: NICOTINE 21MG/24HR 1 EA TRANSDERMAL TD SCH (09:00)
[2022-12-29] MEDS ORDERED: estradioL 1 MG TAB PO SCH ×2 (09:00)
[2022-12-29] MEDS ORDERED: IBUPROFEN 400MG TAB PO PRN (13:20)
[2022-12-29] MEDS ORDERED: MAALOX 30 ML SUSP *UDC PO PRN (13:20)
[2022-12-29] MEDS ORDERED: MOM 30ML SUSPENSION UDC PO PRN (13:20)
[2022-12-29] MEDS ORDERED: diphenhydrAMINE 25MG CAP PO PRN (13:20)
[2022-12-29] MEDS ORDERED: traZODone 50 MG TAB PO PRN (13:20)
[2022-12-29 16:47] VITALS: BP 125/69
[2022-12-29] MEDS ORDERED: QUEtiapine FUMARATE 100 MG TAB PO SCH (21:00)
[2022-12-29] MEDS: QUEtiapine FUMARATE 100 MG TAB PO SCH (21:26)
[2022-12-29] MEDS: estradioL 1 MG TAB PO SCH (21:26)
[2022-12-30 06:39] VITALS: BP 99/52
[2022-12-30] MEDS: NICOTINE 7 MG/24 HR TRANSDERMAL TD SCH (08:05)
[2022-12-30] MEDS: SPIRONOLACTONE 50 MG TAB PO SCH ×2 (08:06→17:19)
[2022-12-30] MEDS: estradioL 1 MG TAB PO SCH ×2 (08:06→20:38)
[2022-12-30] MEDS: QUEtiapine FUMARATE 50MG TAB PO SCH (11:35)
[2022-12-30] MEDS: busPIRone 5 MG TAB PO SCH ×2 (11:35→20:38)
[2022-12-30 13:30] LABS: HEPATITIS B SURFACE ANTIGEN NEGATIVE (NEGATIVE)
[2022-12-30 13:43] LABS: HIV 1&2 SCREEN CENTAUR NEGATIVE (NEGATIVE)
[2022-12-30 13:51] LABS: HEPATITIS C VIRUS ABY INDEX 0.1 INDEX (<0.8)
[2022-12-30 13:52] LABS: HEPATITIS B CORE ANTIBODY IGM NEGATIVE (NEGATIVE)
[2022-12-30 16:37] VITALS: BP 110/64
[2022-12-30] MEDS: QUEtiapine FUMARATE 100 MG TAB PO SCH (20:38)
[2022-12-31 06:16] VITALS: BP 106/52
[2022-12-31 07:37] LABS: CHOLESTEROL RISK RATIO 2.55 (<5); HDL CHOLESTEROL 69.2 MG/DL (>40); LDL CHOLESTEROL 90.4 MG/DL (<100); NON-HDL-C 107.8 MG/DL
[2022-12-31] MEDS: QUEtiapine FUMARATE 50MG TAB PO SCH (08:18)
[2022-12-31] MEDS: SPIRONOLACTONE 50 MG TAB PO SCH ×2 (08:18→16:52)
[2022-12-31] MEDS: busPIRone 5 MG TAB PO SCH ×2 (08:19→20:26)
[2022-12-31] MEDS: estradioL 1 MG TAB PO SCH ×2 (08:20→20:26)
[2022-12-31] MEDS: NICOTINE 7 MG/24 HR TRANSDERMAL TD SCH (08:21)
[2022-12-31 08:55] VITALS: BP 114/68
[2022-12-31 12:10] LABS: GC DNA AMPLIFICATION NEGATIVE (NEGATIVE)
[2022-12-31] MEDS: PROGESTERONE 100 MG PO SCH (16:51)
[2022-12-31 17:16] VITALS: BP 131/74
[2022-12-31] MEDS: QUEtiapine FUMARATE 100 MG TAB PO SCH (20:26)
[2023-01-01 06:20] VITALS: BP 107/57
[2023-01-01] MEDS ORDERED: BUSP15TA47 PO (08:03)
[2023-01-01] MEDS ORDERED: QUET50TA4 PO (08:03)
[2023-01-01] MEDS ORDERED: NICO7PA TD (08:03)
[2023-01-01] MEDS ORDERED: QUET100T2 PO (08:03)
[2023-01-01] MEDS: busPIRone 5 MG TAB PO SCH (08:18)
[2023-01-01] MEDS: PROGESTERONE 100 MG PO SCH (08:18)
[2023-01-01] MEDS: QUEtiapine FUMARATE 50MG TAB PO SCH (08:18)
[2023-01-01] MEDS: estradioL 1 MG TAB PO SCH (08:19)
[2023-01-01] MEDS: SPIRONOLACTONE 50 MG TAB PO SCH (08:19)
[2023-01-01] MEDS: NICOTINE 7 MG/24 HR TRANSDERMAL TD SCH (08:19)
== END 2023-01-01 12:04 | disposition home or self-care (01) | DRG 754 ==
LOC: M ED 01:21 → M ED INP 13:17 → M PSY 16:42
PROVIDERS: ADMIT Student in an Organized Health Care Education/Training Program; ATTEND Student in an Organized Health Care Education/Training Program
DX: F32.9 Major depressive disorder, single episode, unspecified (principal); R45.851 Suicidal ideations; F41.9 Anxiety disorder, unspecified; F90.2 Attention-deficit hyperactivity disorder, combined type; F12.10 Cannabis abuse, uncomplicated; F17.210 Nicotine dependence, cigarettes, uncomplicated; F64.9 Gender identity disorder, unspecified; F60.3 Borderline personality disorder; F44.81 Dissociative identity disorder; F43.20 Adjustment disorder, unspecified; Z79.899 Other long term (current) drug therapy; Z56.0 Unemployment, unspecified; Z65.3 Problems related to other legal circumstances; Z81.8 Family history of other mental and behavioral disorders; Z63.0 Problems in relationship with spouse or partner; Z91.51 Personal history of suicidal behavior; Z62.810 Personal history of physical and sexual abuse in childhood; Z91.52 Personal history of nonsuicidal self-harm

== ENCOUNTER 2023-01-14 17:17 | Emergency (ER) | payer MEDICAID ==
[~2023-01-14] VITALS: Ht 180.3 cm; Wt 63.6 kg
[~2023-01-14 17:17] MED LIST changes: +BUSP15TA47 PO; +ESTR2TAB3 PO; +NICO7PA TD; +QUET100T2 PO
[2023-01-14 18:02] LABS: HEMATOCRIT 40.1 % (42.0-52.0); HEMOGLOBIN 13.4 g/dl (13.5-17.5); MEAN CORPUSCULAR HEMOGLOBIN 32.3 pg (27.0-33.0); MEAN CORPUSCULAR HGB CONC 33.4 g/dl (32.0-36.5); MEAN CORPUSCULAR VOLUME 96.6 fl (80.0-96.0); PLATELET COUNT, AUTOMATED 312 10^3/uL (150-450); RED BLOOD COUNT 4.15 10^6/uL (4.30-6.10); WHITE BLOOD COUNT 12.8 10^3/uL (4.0-10.0)
[2023-01-14 18:25] LABS: AMPHETAMINES LEVEL URINE NEGATIVE (NEGATIVE); BARBITURATES URINE NEGATIVE (NEGATIVE); BENZODIAZEPINES URINE NEGATIVE (NEGATIVE); COCAINE METABOLITE URINE NEGATIVE (NEGATIVE); METHADONE URINE NEGATIVE (NEGATIVE); OPIATES URINE NEGATIVE (NEGATIVE); PHENCYCLIDINE URINE NEGATIVE (NEGATIVE)
[2023-01-14 18:26] LABS: CANNABINOIDS URINE POSITIVE (NEGATIVE)
[2023-01-14 18:27] LABS: ETHYL ALCOHOL (ETHANOL) < 0.003 % (0.000-0.010)
[2023-01-14 18:29] LABS: ACETAMINOPHEN LEVEL < 2.0 UG/ML (10.0-20.0); ALKALINE PHOSPHATASE 57 U/L (46-116); ALT/SGPT 19 U/L (7.0-40); AST/SGOT 18 U/L (<34); BILIRUBIN,DIRECT 0.1 MG/DL (<0.4); BILIRUBIN,TOTAL 0.4 MG/DL (0.3-1.2); BLOOD UREA NITROGEN 10 MG/DL (9-23); CALCIUM LEVEL 9.1 MG/DL (8.5-10.1); CARBON DIOXIDE LEVEL 26 MMOL/L (20-31); CHLORIDE LEVEL 104 MMOL/L (98-107); CREATININE FOR GFR 0.91 MG/DL (0.70-1.30); GLOMERULAR FILTRATION RATE > 60.0 (>60); GLUCOSE, FASTING 87 MG/DL (60-100); POTASSIUM SERUM 4.2 MMOL/L (3.5-5.1); SALICYLATE LEVEL < 3.0 MG/DL (<30); SODIUM LEVEL 138 MMOL/L (136-145)
[2023-01-14 18:32] LABS: THYROID STIMULATING HORMONE 1.102 uIU/ML (0.55-4.78)
[2023-01-14] MEDS ORDERED: ISOVUE-370 76% 100ML VIAL As Ordered ONE (19:30)
[2023-01-14] MEDS ORDERED: QUET100T2 PO ×2 (20:40)
[2023-01-14] MEDS ORDERED: BUSP15TA47 PO (20:40)
[2023-01-14] MEDS ORDERED: BANO25TA PO (20:41)
[2023-01-14] MEDS ORDERED: HOME MED LIST COMPLETE! XX SCH (20:45)
[2023-01-15] MEDS ORDERED: QUEtiapine FUMARATE 50MG TAB PO SCH (09:00)
[2023-01-15] MEDS ORDERED: estradioL 1 MG TAB PO SCH (09:00)
[2023-01-15] MEDS ORDERED: busPIRone 5 MG TAB PO SCH (09:00)
[2023-01-15 13:56] VITALS: BP 118/57
[2023-01-15] MEDS ORDERED: QUEtiapine FUMARATE 100 MG TAB PO SCH (21:00)
== END 2023-01-15 14:16 | disposition home or self-care (01) ==
LOC: M ED 17:17
DX: F43.0 Acute stress reaction (principal); F32.A Depression, unspecified; F90.9 Attention-deficit hyperactivity disorder, unspecified type; F64.0 Transsexualism; F17.200 Nicotine dependence, unspecified, uncomplicated; R45.851 Suicidal ideations; F43.10 Post-traumatic stress disorder, unspecified; F12.10 Cannabis abuse, uncomplicated; Z79.899 Other long term (current) drug therapy
CPT/HCPCS: 36415; 70498; 80048; 80076; 80143; 80307; 82077; 84443; 85027; 87635; 99284; Q9967